=== PATIENT | male | born 1965 | race Caucasian/White ===

== ENCOUNTER 2021-10-31 05:30 | Day surgery (SDC) | payer OTHER ==
[~2021-10-31] VITALS: Ht 167.6 cm; Wt 130.0 kg
[~2021-10-31 05:30] MED LIST: AMLO-143 PO; ASPI-1450 PO; HYDR25TA2 PO; LOSA-382 PO; SODIUM CHLORIDE 0.9% 1,000 ML IV ONE
[2021-10-31] MEDS ORDERED: SODIUM CHLORIDE 0.9% 1,000 ML ONE (05:32)
[2021-10-31] MEDS ORDERED: ASPIRIN 81 MG CHEWABLE TABLET ONE (05:34)
[2021-10-31] MEDS ORDERED: DiphenhydrAMINE HCL 50 MG CAPSULE ONE (05:35)
[2021-10-31] MEDS ORDERED: DIAZEPAM 5 MG TABLET ONE (05:35)
[2021-10-31] MEDS ORDERED: SODIUM BICARBONATE 50 MEQ/50 ML VIAL ONE (07:16)
[2021-10-31] MEDS ORDERED: IOHEXOL 300 MG/ML 100 ML VIAL ONE (07:16)
[2021-10-31] MEDS ORDERED: IOHEXOL 300 MG/ML 50 ML VIAL ONE (07:16)
[2021-10-31] MEDS ORDERED: IOHEXOL 300 MG/ML 150 ML VIAL ONE (07:16)
[2021-10-31] MEDS ORDERED: LIDOCAINE/PF 1% 30 ML VIAL ONE (07:16)
[2021-10-31] MEDS ORDERED: HEPARIN SODIUM 1000 UNITS/NS 1,000 ML ONE (07:17)
[2021-10-31] MEDS ORDERED: ASPIRIN 81 MG CHEWABLE TABLET PO ONE (07:30)
[2021-10-31] MEDS ORDERED: DiphenhydrAMINE HCL 50 MG CAPSULE PO ONE (07:30)
[2021-10-31] MEDS ORDERED: DIAZEPAM 5 MG TABLET PO ONE (07:30)
[2021-10-31 07:42] VITALS: BP 170/83
[2021-10-31] MEDS ORDERED: MIDAZOLAM HCL 2 MG/2 ML VIAL ONE (07:43)
[2021-10-31] MEDS ORDERED: FentaNYL CITRATE PF 100 MCG/2 ML VIAL ONE (07:43)
[2021-10-31] MEDS ORDERED: PHENYLEPHRINE 200 MG/D5%-WATER 250 ML IV ONE (07:43)
[2021-10-31] MEDS ORDERED: MIDAZOLAM HCL 2 MG/2 ML VIAL IVP ONE ×2 (08:15)
[2021-10-31] MEDS ORDERED: FentaNYL CITRATE PF 100 MCG/2 ML VIAL IVP ONE (08:15)
[2021-10-31] MEDS ORDERED: IOHEXOL 300 MG/ML 150 ML VIAL IARTER ONE (08:15)
[2021-10-31] MEDS ORDERED: LIDOCAINE 1% 30 ML/SOD BICARB 8.4% 4 ML SQ ONE (08:15)
[2021-10-31] MEDS ORDERED: HEPARIN SODIUM 1000 UNITS/NS 1,000 ML IARTER ONE (08:15)
[2021-10-31 08:25] VITALS: BP 172/79
== END 2021-10-31 12:10 | disposition home or self-care (01) ==
LOC: CATHLAB 05:30
PROVIDERS: ATTEND Internal Medicine Interventional Cardiology
DX: R94.39 Abnormal result of other cardiovascular function study (principal); I25.10 Atherosclerotic heart disease of native coronary artery without angina pectoris; I10 Essential (primary) hypertension; G47.30 Sleep apnea, unspecified; E78.5 Hyperlipidemia, unspecified; Z90.49 Acquired absence of other specified parts of digestive tract; Z79.899 Other long term (current) drug therapy; Z98.890 Other specified postprocedural states
CPT/HCPCS: 93458; 99152; C1760; J1644; J2250; J2370; J3010; J3490 ×2; J7030; Q9967